=== PATIENT | female | born 2000 | race Caucasian/White ===

== ENCOUNTER 2021-07-29 05:48 | Emergency (ER) | payer SELFPAY ==
[~2021-07-29] VITALS: Ht 157.5 cm; Wt 55.0 kg
[2021-07-29] MEDS ORDERED: LORAZEPAM 2MG/ML CPJ IM ONE ×3 (06:00→20:15)
[2021-07-29] MEDS ORDERED: OLANZAPINE 10 MG/VIAL IM ONE (06:00)
[2021-07-29 07:57] LABS: BASOPHILS % 0.5 % (0.0-2.0); EOSINOPHILS % 0.1 % (0.0-5.0); HEMATOCRIT. 40.5 % (36.0-48.0); HEMOGLOBIN. 13.8 g/dL (12.0-16.0); MEAN CORPUSCULAR HEMOGLOBIN 30.7 pg (28.0-32.0); MEAN PLATELET VOLUME 8.2 fl (7.4-10.4); MONOCYTES % 7.3 % (2.0-8.0); NEUTROPHILS % 77.1 % (40.0-76.0); PLATELET 389 x1000/uL (130-400); RED CELL DISTRIBUTION WIDTH 13.8 % (11.6-14.6)
[2021-07-29 08:04] LABS: CLARITY URINE CLOUDY (CLEAR); COLOR URINE YELLOW (YELLOW); KETONES URINE NEGATIVE (NEGATIVE); LEUKOCYTE ESTERASE URINE 3+ (NEGATIVE); NITRITE URINE NEGATIVE (NEGATIVE); OCCULT BLOOD URINE NEGATIVE (NEGATIVE); PH URINE 6.5 (4.5-8.0); PROTEIN URINE NEGATIVE (NEGATIVE); SPECIFIC GRAVITY URINE 1.011 (1.005-1.030); UROBILINOGEN URINE 0.2 E.U./dL (0.2-1.0)
[2021-07-29 08:06] LABS: CHLORIDE 108 mEq/L (98-107)
[2021-07-29 08:10] LABS: ETHANOL BLOOD < 10 mg/dL
[2021-07-29 08:15] LABS: HCG SCREEN NEGATIVE
[2021-07-29 08:21] LABS: *AMPHETAMINES SCREEN URINE NEGATIVE (NEGATIVE); *BARBITURATES SCREEN URINE NEGATIVE (NEGATIVE); *BENZODIAZEPINES SCREEN URINE NEGATIVE (NEGATIVE); *COCAINE SCREEN URINE NEGATIVE (NEGATIVE)
[2021-07-29 08:23] LABS: METHADONE URINE SCREEN NEGATIVE (NEGATIVE); OPIATES URINE SCREEN NEGATIVE (NEGATIVE); PHENCYCLIDINE URINE SCREEN NEGATIVE (NEGATIVE)
[2021-07-29 08:28] LABS: CANNABINOID URINE SCREEN PRESUMTIVE POSITIVE (NEGATIVE)
[2021-07-29] MEDS ORDERED: SODIUM CHLORIDE 0.9% 1,000 ML IV ONE (09:00)
[2021-07-29] MEDS ORDERED: CEFTRIAXONE 1 G PREMIX 50 ML IV ONE (09:00)
[2021-07-29] MEDS ORDERED: LORAZEPAM 2MG/ML CPJ IV ONE (10:15)
[2021-07-29] MEDS ORDERED: LORAZEPAM 1MG TABLET PO PRN (10:45)
[2021-07-29] MEDS ORDERED: DIPHENHYDRAMINE 50MG/ML VIAL IM ONE ×2 (10:45→20:15)
[2021-07-30] MEDS ORDERED: OLANZAPINE 5MG TABLET PO SCH (09:00)
[2021-07-30 10:29] VITALS: BP 112/76
[2021-07-30] MEDS ORDERED: AZITHROMYCIN 500 MG TABLET PO NR (12:00)
[2021-07-30] MEDS ORDERED: OLAN10TA3 MT (12:07)
[2021-07-30] MEDS ORDERED: CEPH500C2 MT (12:07)
== END 2021-07-30 12:57 | disposition home or self-care (01) ==
LOC: ER 05:48 → EDBD 05:48 → ER 07-30 12:57
DX: F23 Brief psychotic disorder (principal); U07.1 COVID-19; N39.0 Urinary tract infection, site not specified; F25.0 Schizoaffective disorder, bipolar type; R45.1 Restlessness and agitation; M79.605 Pain in left leg; F12.10 Cannabis abuse, uncomplicated; Z78.1 Physical restraint status; Z91.51 Personal history of suicidal behavior
CPT/HCPCS: 36415; 71045; 80053; 80305; 80307; 80320; 80329; 81003; 81025; 84703; 85025; 96365; 96372; 99285; C9803; J0696; J1200; J2060; J3490; J7030; U0003; U0005; Z7610; G0480